=== PATIENT | male | born 1935 | race Caucasian/White ===

== ENCOUNTER 2017-12-27 10:45 | Inpatient (IN) | payer MEDICARE, OTHER ==
--- NOTE | 2018-01-02 12:44 | HP ---
HISTORY AND PHYSICAL: DATE OF ADMISSION/SURGERY: 01/10/18 CHIEF COMPLAINT: Left hip region pain. HISTORY OF PRESENT ILLNESS: The patient has been progressively disabled with his left hip pain over the last 12 months and we recommended a left total hip replacement for severe left hip arthritis. PAST MEDICAL HISTORY: No heart attack. No chest pain. He has not had cancers. He has satisfactory lung functioning and no history of DVT or pulmonary embolism. He just had a colonoscopy because of some blood per rectum and that was satisfactory. MEDICATIONS: For the left hip, he sometimes takes Aleve and Tylenol. PHYSICAL EXAMINATION VITAL SIGNS: Height 68 inches, 166 pounds. Temp 97.1, blood pressure 128/60. EXTREMITIES: He has an antalgic gait on the left. The left hip shows 90 degrees of flexion, 40 degrees of abduction, 30 degrees of external rotation, 0 internal rotation. Straight leg raising is difficult on the left because of left groin pain. IMAGING: Left hip x-rays show joint space narrowing. IMPRESSION: Severe left hip arthritis. We recommended a left total hip replacement. The goals, risks, and complications have been reviewed with him including but not limited to infection, leg length inequality, dislocation, and hip precautions. His questions were answered. PLAN: Left total hip replacement, 01/10/18. [id number]/[facility] #: [id number] MARINA
[2018-01-09] MEDS ORDERED: Buffered Lidocaine 0.9% SYRIN* 5 ML/SYR SYRINGE INTRADERM ONE (12:59)
[2018-01-10] MEDS ORDERED: Ondansetron ODT TAB* 4 MG PO ONE (00:01)
[2018-01-10] MEDS ORDERED: Dexamethasone IV* 4 MG/ML 1 ML (4 MG) IV SLOW PU ONE (06:00)
[2018-01-10] MEDS ORDERED: Gabapentin CAP(*) 300 MG PO ONE (06:00)
[2018-01-10] MEDS ORDERED: Famotidine IV* 10 MG/ML 2 ML (20 mg) IV ONE (06:00)
[2018-01-10] MEDS ORDERED: Famotidine IV* 10 MG/ML 2 ML (20 mg) ONE (09:19)
[2018-01-10] MEDS ORDERED: Dexamethasone IV* 4 MG/ML 1 ML (4 MG) ONE (09:19)
[2018-01-10] MEDS ORDERED: Ondansetron ODT TAB* 4 MG ONE (09:19)
[2018-01-10] MEDS ORDERED: ceFAZolin 2 GM PREMIX (*) 2 GM/50 ML BAG IVPB ONE (09:19)
[2018-01-10] MEDS ORDERED: Gabapentin CAP(*) 100 MG ONE (09:21)
[2018-01-10] MEDS ORDERED: Gabapentin CAP(*) 400 MG PO ONE (09:21)
[2018-01-10] MEDS ORDERED: fentaNYL* 50 MCG/ML 2 ML VIAL (100 MCG VIAL) ONE ×3 (10:42→15:54)
[2018-01-10] MEDS ORDERED: Midazolam* 1 MG/ML 5 ML VIAL (5 MG) ONE (10:42)
[2018-01-10] MEDS ORDERED: Bupivacaine 0.5% PF 10 ML VIAL INJ ONE (10:43)
[2018-01-10] MEDS ORDERED: Propofol* 10 MG/ML 20 ML BTL IV PUSH ONE (10:43)
[2018-01-10] MEDS ORDERED: ROPIVACAINE 5 MG/ML 30 ML BTL (0.5%) ONE (11:23)
[2018-01-10] MEDS ORDERED: Ropivacaine (OR use only) 2 MG/ML 10 ML ONE (11:23)
[2018-01-10] MEDS ORDERED: oxyCODONE TAB* 5 MG TAB PO PRN ×2 (12:32→14:16)
[2018-01-10] MEDS ORDERED: DiMENhydriNATE IV* 50 MG/ML VIAL IV PUSH PRN (12:32)
[2018-01-10] MEDS ORDERED: Ondansetron INJ* 2 MG/ML VIAL IV PRN (12:32)
[2018-01-10] MEDS ORDERED: Naloxone* 0.4 MG/ML 1 ML VIAL IV PRN (12:32)
[2018-01-10] MEDS ORDERED: HYDROmorphone INJ* 1 MG/ML CARPUJECT SYRINGE IV PRN (12:32)
[2018-01-10] MEDS ORDERED: oxyCODONE/Acetamin 5/325 MG* TAB PO PRN (14:16)
[2018-01-10] MEDS ORDERED: Cyclobenzaprine TAB* 10 MG PO PRN (14:16)
[2018-01-10] MEDS ORDERED: Morphine VIAL* 4 MG/ML VIAL (1 ml vial) IV PRN ×2 (14:16)
[2018-01-10] MEDS ORDERED: Magnesium Hydroxide LIQ* 30 ML UDC PO PRN (14:16)
[2018-01-10] MEDS ORDERED: diPHENhydraMINE IV* 50 MG/ML 1 ml VIAL (BENADRYL) IV PRN (14:16)
[2018-01-10] MEDS ORDERED: Ondansetron 40 MG VIAL* 2 MG/ML 20 ML VIAL IV PRN (14:16)
[2018-01-10] MEDS ORDERED: diPHENhydraMINE PO* 25 MG PO PRN (14:16)
[2018-01-10] MEDS ORDERED: Ondansetron TAB* 4 MG PO PRN (14:16)
[2018-01-10] MEDS ORDERED: Acetaminophen TAB* 325 MG PO PRN (14:16)
--- NOTE | 2018-01-10 15:20 | RAD ---
Indication: Left total hip replacement Single view of the pelvis demonstrates left total hip replacement. Pelvic ring is intact. No fracture is noted. IMPRESSION: Left hip replacement in satisfactory position.
--- NOTE | 2018-01-10 15:21 | RAD ---
Indication: Status post left total hip replacement 2 views of left hip demonstrates bipolar left hip replacement in satisfactory position. No loosening is noted. IMPRESSION: Left hip replacement in satisfactory position.
[2018-01-10] MEDS: fentaNYL* 50 MCG/ML 2 ML VIAL (100 MCG VIAL) IV PRN ×3 (15:22→15:56)
[2018-01-10] MEDS ORDERED: oxyCODONE TAB* 5 MG TAB ONE (15:30)
[2018-01-10] MEDS: Atorvastatin* 40 MG TAB PO SCH (18:20)
[2018-01-10] MEDS: Tamsulosin CAP* 0.4 MG PO SCH (18:20)
[2018-01-10] MEDS: Clindamycin 600 MG IVPREMIX(* 600 MG/50 ML SDV IV SCH (19:41)
[2018-01-10] MEDS: Docusate CAP* 100 MG PO SCH (20:47)
[2018-01-10] MEDS: oxyCODONE/Acetamin 5/325 MG* TAB PO PRN (20:47)
[2018-01-10] MEDS: Magnesium Hydroxide LIQ* 30 ML UDC PO SCH (20:48)
[2018-01-11] MEDS: oxyCODONE/Acetamin 5/325 MG* TAB PO PRN ×5 (03:59→20:24)
[2018-01-11] MEDS: Clindamycin 600 MG IVPREMIX(* 600 MG/50 ML SDV IV SCH ×2 (04:00→12:26)
--- NOTE | 2018-01-11 06:59 | PN ---
Progress Note - Progress Note Date of Service: 01/11/18 Note: VSStable. Awake, alert, cooperative and breathing easily. Hip dressing is dry. Exercises done. Labs pending. I and O are satisfactory. Plans: Check labs and up with walker.
[2018-01-11 07:33] LABS: Hematocrit 25 % (42-52); Hemoglobin 8.7 g/dl (14.0-18.0); Mean Platelet Volume 7.3 um3 (7.4-10.4); Platelet Count 142 10^3/ul (150-450)
[2018-01-11 07:43] LABS: EGFR Non-African American 53.5 (>60)
[2018-01-11] MEDS: Docusate CAP* 100 MG PO SCH ×2 (08:06→20:24)
--- NOTE | 2018-01-11 10:15 | OP ---
DATE OF OPERATION: 01/10/18 - ROOM #335 DATE OF : 31 SURGICAL CARE: Left hip. SURGEON: Vladislav Ordonez MD ASSISTANTS: 1. KUSUM Cuenca, first dyer. 2. Sydnie Bautista, surgical attendant. ANESTHESIOLOGIST: Grayson Veronica MD ANESTHESIA: Spinal with IV sedation. PRE-OP DIAGNOSIS: Severe arthritis of the left hip. POST-OP DIAGNOSIS: Severe arthritis of the left hip. OPERATIVE PROCEDURE: Left total hip replacement. INDICATIONS: Severe left hip arthritis with increasing disability over the past year, it has been no longer responsive to nonoperative care. COMPONENTS UTILIZED: Donita Continuum cup 52-mm outer diameter with 1 screw and elevated liner was placed posteriorly for a 36 head. On the femoral side, an M/L taper standard size 13.5 stem and the head is a +0, 36-mm cobalt-chrome head. COMPLICATIONS: There were no complications. DRAINS: There were no drains. ESTIMATED BLOOD LOSS: 200 mL. REPLACEMENT: Crystalloid fluids. DESCRIPTION OF PROCEDURE: The patient was administered a block in the holding area and then he was brought to the operating room. A Jackson catheter was inserted. He was placed on the right side with a folded blanket underneath the right greater trochanter and the axillary roll. The pelvis was secured over the ASIS and the sacrum. The downside leg was padded, so that there was no pressure on the peroneal nerve at the right fibular head and neck. Blankets were placed between the legs. The groin was sealed off and the left hip, left lower extremity then prepped. Given a preliminary chlorhexidine prep and then a final formal ChloraPrep from the hip to the foot. After prepping, draping, and sealing off, we did our universal protocol time-out confirming Grayson Olivas and the plan for left total hip replacement. We all agreed and we proceeded. The left hip was approached with a 3-inch skin incision going from the greater trochanter distally for an inch and a half and proximally, a little posteriorly for an inch and a half. Skin and subcu tissues were divided down to the deep fascia. Careful hemostasis was checked and achieved throughout the case utilizing electrocautery. The fascia was then opened and the gluteus aramis was put in the direction of its fibers. A Charnley retractor was inserted. The gluteus medius was retracted anteriorly with a blunt Hohmann retractor exposing the piriformis and conjoint tendon. Both tendons were released from the piriformis fossa insertions and each was marked with a #2 Surgidac and this stitch also included the underlying capsular flap. The gluteus medius was then protected with a blunt Hohmann retractor retracting both muscles anteriorly and a careful posterior approach of the hip was done with careful hemostasis. The hip was dislocated without difficulty. The femoral neck was marked with the neck resecting guide for the M/L taper. The neck was cut about a fingerbreadth proximal to the lesser trochanter. The head and neck was removed. The labrum was irregular, torn up and had flaps. Anteriorly, there were granulations along the junction of the labrum and the acetabulum yellowed. The remains of the labrum were excised posteriorly, superiorly, anteriorly. Medial osteophyte was removed. Retraction anteriorly and posteriorly, sharp Hohmann; superiorly and inferiorly, blunt Hohmann; osteophyte was removed posteriorly as well. Reaming was then done medially with a 44 and then concentric reaming was done 44, 46, 48 , 50, 51, and 52. The acetabulum was cleaned several times with pulsed saline. A 52 Continuum cup was impacted into position in 45 degrees of abduction, 20 degrees of anteversion, and a single screw was placed superiorly. An elevated liner was then placed posteriorly. The acetabulum was packed and on the femoral side, we used a canal finder. Box osteotome trochanteric reamer broaching was done 5 through 13.5 and a 13.5 had a nice tight fit. A trial reduction was done with a standard neck +0 head with nice soft tissue tension. No tendency towards dislocation. In extension, there was a negative push-pull. There was no tendency towards dislocation with IR or ER. Flexion of 90 degrees allowed adduction and internal rotation of 30 to 40 degrees prior to dislocation. The femoral canal was cleaned with pulsed saline, suctioned empty , and a 13.5 standard M/L taper stem was impacted into its position approximately 15 to 20 degrees of anteversion and a +0, 36-mm head was placed on the clean trunnion. The hip was reduced without difficulty. Two drill holes were made through the posterior superior greater trochanter and the stitches that had been put in the piriformis conjoint tendon and the posterior capsule were brought through these 2 holes. Careful hemostasis was checked and achieved utilizing electrocautery during the closure. Careful irrigation with saline and swabbing the soft tissues with clean lap sponges to discourage leaving any debris. The fascia closed with interrupted #1 Vicryls in [id number] fashion. The deep subcu was closed with 0 Vicryl and the superficial subcu closed with 2-0 Vicryl and the skin closed with zuri. The skin was washed and dried and covered with Betadine- soaked release followed by sterile gauze, ABD pad, and then paper tape. The patient was carefully returned to the hospital bed and to the recovery room in stable and satisfactory condition having tolerated the procedure very well. [id number]/[facility] #: [id number] MARINA
[2018-01-11] MEDS: Magnesium Hydroxide LIQ* 30 ML UDC PO SCH ×2 (10:39→20:24)
[2018-01-11] MEDS: Aspirin TAB* 325 MG PO SCH (12:26)
[2018-01-11 13:44] LABS: Hematocrit 25 % (42-52); Hemoglobin 8.5 g/dl (14.0-18.0)
[2018-01-11] MEDS: Atorvastatin* 40 MG TAB PO SCH (18:09)
[2018-01-11] MEDS: Tamsulosin CAP* 0.4 MG PO SCH (18:09)
[2018-01-12] MEDS: oxyCODONE/Acetamin 5/325 MG* TAB PO PRN ×3 (00:27→11:50)
[2018-01-12 07:05] LABS: Hematocrit 21 % (42-52); Hemoglobin 7.3 g/dl (14.0-18.0); Mean Platelet Volume 7.2 um3 (7.4-10.4); Platelet Count 116 10^3/ul (150-450)
--- NOTE | 2018-01-12 08:01 | PN ---
Progress Note - Progress Note Date of Service: 01/12/18 Note: VSStable Awake, alert, cooperative, breathing easily. Hct is down to 21% Left hip is clean and dry and ecchymotic. All washed soap and water and new betadine dressing applied. Moving around the bed well and N/V left foot is intact. Imp: Acute blood loss anemia. Stable following Total hip Plans: Continue to mobilize with walker. Transfuse 1 unit PRBCs, he is advised and agreeable.
[2018-01-12] MEDS: Docusate CAP* 100 MG PO SCH (09:10)
[2018-01-12] MEDS: Aspirin TAB* 325 MG PO SCH (09:10)
[2018-01-12] MEDS: Magnesium Hydroxide LIQ* 30 ML UDC PO SCH (09:11)
--- NOTE | 2018-01-12 13:20 | DS ---
DATE OF ADMISSION: 01/10/2018. DATE OF DISCHARGE: 01/12/2018. ATTENDING SURGEON: Dr. Vladislav Ordonez * (dictated by KUSUM Garvin). PRINCIPAL DIAGNOSIS: Severe arthritis of the left hip. DISCHARGE DIAGNOSIS: Severe arthritis of the left hip. HISTORY OF PRESENT ILLNESS: Mr. Olivas is an 82-year-old gentleman with severe pain in his left hip secondary to severe osteoarthritis. He failed conservative treatment and elected to proceed with a left total hip arthroplasty. HOSPITAL COURSE: The patient was admitted electively to the hospital on 2017 and underwent a left total hip arthroplasty. He tolerated the procedure well without complications. Postoperatively, he placed on aspirin for DVT prophylaxis. On postoperative day one, his H and H was 8.7 and 25; on postoperative day two, 8.5 and 25; on post-operative day three 7.3 and 21. At the time of discharge, he was afebrile. His vital signs were stable. His wound was clean and dry. DISCHARGE MEDICATIONS: 1. Percocet 5/325 one to two tabs every 6 hours as needed for pain. 2. Colace 100 mg two to three times daily for constipation. 3. Aspirin 325 mg twice daily for 4 weeks. 4. Lipitor 40 mg daily. 5. Flomax 0.4 mg daily. PHYSICAL EXAMINATION UPON DISCHARGE: He was afebrile. His vital signs were stable. His wound was clean and dry. He was ambulating well and he was distally neurovascularly intact. DISCHARGE INSTRUCTIONS: The patient was discharged home. He was given Percocet for pain and he was given Colace for constipation and asked to take aspirin 325 twice a day for four weeks for DVT prophylaxis. He can start showering tomorrow. Let soap and water run over the incision and pat dry, do not submerge the incision in water. He should follow-up with Dr. Ordonez in two weeks and the posterior hip precautions were discussed. KUSUM GARVIN [id number]/[facility] #: [id number] MTDD
[2018-01-12 16:09] VITALS: BP 141/50
== END 2018-01-12 16:05 | disposition home health service (06) | DRG 470 ==
LOC: AA 01-10 09:10 → SSU 01-10 16:21
PROVIDERS: ADMIT Orthopaedic Surgery; ATTEND Orthopaedic Surgery
PROC: 0SRB02A Replacement of Left Hip Joint with Metal on Polyethylene Synthetic Substitute, Uncemented, Open Approach (ICD-10-PCS; 2018-01-10)
PROC: 30233N1 Transfusion of Nonautologous Red Blood Cells into Peripheral Vein, Percutaneous Approach (ICD-10-PCS; principal; 2018-01-10 10:30)
DX: M16.12 Unilateral primary osteoarthritis, left hip (principal); D62 Acute posthemorrhagic anemia; N40.0 Benign prostatic hyperplasia without lower urinary tract symptoms; E78.00 Pure hypercholesterolemia, unspecified; M25.752 Osteophyte, left hip; Z87.891 Personal history of nicotine dependence; Z88.0 Allergy status to penicillin
CPT/HCPCS: 36415; 72170; 80048; 85014; 85018; 85049; 86850; 86900; 86901; 86922; A9270-GY; C1713; C1776; G8978-GP-CJ; G8979-GP-CI; J0690; J1100; J2250; J2704; J2795; J3010; P9040